=== PATIENT | female | born 1990 | race African-American/Black ===

== ENCOUNTER 2019-04-23 16:27 | Emergency (ER) | payer OTHER, SELFPAY ==
[2019-04-23] MEDS ORDERED: Tetracaine 0.5% OPHTH SOLN/PF 4 ML BOT ONE (16:36)
[2019-04-23] MEDS ORDERED: Fluorescein Opthalmic Strip ONE (16:36)
== END 2019-04-23 17:00 | disposition home or self-care (01) ==
LOC: BURERS 16:27
DX: H10.11 Acute atopic conjunctivitis, right eye (principal); F17.200 Nicotine dependence, unspecified, uncomplicated
CPT/HCPCS: 99283